=== PATIENT | male | born 1995 | race Two or more races ===

== ENCOUNTER 2020-07-29 08:47 | Emergency (ER) | payer OTHER ==
[~2020-07-29] VITALS: Ht 177.8 cm; Wt 99.8 kg
--- NOTE | 2020-07-29 08:45 | Emergency Room Report ---
History of Present Illness Present Illness HPI 24-year-old male with no relevant past medical history here with right foot pain. Patient was evading police and jumped over a fence and fell approximately 10 feet onto his right foot. He is complaining of right foot pain. No obvious deformities. Patient was ambulatory at the scene. Denies any focal numbness or weakness. No back pain. Did not hit his head or neck when he fell. No loss of consciousness. No other pain. Pain is throbbing in nature, located solely in the right foot, does not otherwise radiate. Has not take any medication for the pain. This happened approximately 30 minutes prior to coming to the emergency department. He is in police custody. Allergies: Coded Allergies: No Known Allergies (Unverified , 07/29/20) Review of Systems All Other Systems: negative except mentioned in HPI Physical Exam Sp02 EP Interpretation: reviewed, normal General Appearance: no apparent distress, alert, non-toxic Head: normocephalic, atraumatic Eyes: bilateral eye normal inspection, bilateral eye PERRL ENT: hearing grossly normal, normal pharynx, no angioedema, normal voice Neck: full range of motion, supple/symm/no masses Respiratory: chest non-tender, lungs clear, normal breath sounds, speaking full sentences Cardiovascular #1: regular rate, rhythm, no edema Cardiovascular #2: 2+ carotid (R), 2+ carotid (L), 2+ radial (R), 2+ radial (L), 2+ dorsalis pedis (R), 2+ dorsalis pedis (L) Gastrointestinal: normal bowel sounds, non tender, soft, non-distended, no guarding, no rebound Rectal: deferred Genitourinary: normal inspection, no CVA tenderness Musculoskeletal: back normal, calf tenderness, gait/station normal, other - Small effusion and tenderness to palpation just distal to the right medial malleolus. Neurovascularly intact. Normal capillary refill. Pulses 2+. No knee pain. No back pain Neurologic: alert, motor strength/tone normal, oriented x3, sensory intact, responsive, speech normal Psychiatric: judgement/insight normal, memory normal, mood/affect normal, no suicidal/homicidal ideation Lymphatic: no adenopathy Medical Decision Making Diagnostic Impression: Primary Impression: Injury of lower extremity ER Course Splint note: David wrap applied by the tech to the right ankle and examined by myself. Patient was neurovascularly intact before and after the David wrap was applied. 24-year-old male here with right foot pain after falling from a height of 10 feet. Patient complaining only of pain in his right ankle. X-rays of the right ankle and right foot were taken. Due to the mechanism radiographs of the lumbar spine were also taken. X-ray foot: No acute bony or joint abnormalities X-ray ankle: Right ankle without any acute joint or bony abnormalities. No acute fracture or dislocation X-ray lumbosacral spine: No acute bony or joint abnormalities. No fractures Patient was given ibuprofen with some resolution of his pain. David wrap was applied as described above. Patient tolerated procedure well and was neurovascular intact before and after the David wrap was placed. Discharged to [facility]. Koko Meza M.D. Jul 29, 2020 08:45
--- NOTE | 2020-07-29 08:50 | NUR ---
ED Nurse Note: Pt brought in by ambulance from [facility] c/o right foot pain after evading police and falling from a fence 30 minutes before arrival. Pt in police custody. Per police, pt fell about 12 feet. Respirations even and unlabored on room air. Vitals stable as documented. A+Ox4, speaking in complete sentences.
--- NOTE | 2020-07-29 10:08 | NUR ---
ED Nurse Note: ankle wrapped and walking shoe placed
[2020-07-29 10:25] VITALS: BP 129/91
--- NOTE | 2020-07-29 10:25 | NUR ---
ED Nurse Note: pt discharged accompanied by AN
--- NOTE | 2020-07-29 10:25 | NUR ---
ED Nurse Note: Pt cleared by health care Provider for discharge. DC instructions/prescription were given and explained to pt. Pt verbalized understanding of teachings. All medical devices such as ID band removed. Pt is AAO x4, ambulatory and left with all personal belongings.
--- NOTE | 2020-07-31 14:19 | Diagnostic Imaging Report ---
Indication: Back pain status post injury Technique: 5 views of the lumbar spine Comparison: None Findings: There are 5 nonrib-bearing lumbar type vertebral bodies, assuming 12 ribs. No acute lumbar spine fracture is identified. Lumbar lordosis is maintained, without evidence of spondylolisthesis. No evidence of vertebral body compression fracture. Bowel gas pattern is nonobstructive. 2 [place] are noted projecting over the pelvis, likely external to patient. IMPRESSION: No evidence of acute fracture or traumatic malalignment. 2 [place] are noted projecting over the pelvis, likely external to patient. Correlate with physical exam.
--- NOTE | 2020-07-31 14:21 | Diagnostic Imaging Report ---
Indication: Ankle pain Technique: 4 views of the right ankle. Comparison: None Findings: Bony mineralization within normal limits. No acute fracture is identified. Ankle mortise is intact on these nonstress views. Imaged portions of the hindfoot grossly unremarkable. No radiopaque foreign body seen. Impression: No acute fracture or dislocation.
--- NOTE | 2020-07-31 14:22 | Diagnostic Imaging Report ---
Indication: Right foot pain Technique: 3 views of the right foot Comparison: None Findings: Bony mineralization within normal limits. No acute fracture is identified. 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 Otherwise alignment joint spaces are maintained. There is diverticulum body. Impression: No acute fracture or dislocation.
== END 2020-07-29 10:25 ==
LOC: EDBD 08:47 → EMR 09:00
DX: S89.91XA Unspecified injury of right lower leg, initial encounter (principal); W17.89XA Other fall from one level to another, initial encounter; Y92.9 Unspecified place or not applicable; M54.9 Dorsalgia, unspecified; M40.56 Lordosis, unspecified, lumbar region
CPT/HCPCS: 72020; 99284